=== PATIENT | male | born 2000 | race Caucasian/White ===

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

== ENCOUNTER 2019-11-26 17:08 | Emergency (ER) | payer MEDICAID ==
--- NOTE | 2019-11-26 18:08 | EDM.PDOC ---
ED HPI GENERAL MEDICAL PROBLEM - General Chief Complaint: ENT Problem Stated Complaint: SWOLLEN TONSILS Time Seen by Provider: 11/26/19 17:45 Source of Information: Reports: Patient History Limitations: Reports: No Limitations - History of Present Illness INITIAL COMMENTS - FREE TEXT/NARRATIVE: 19-year-old male with a sore throat for the last 2 days, is getting difficult to swallow and he looked in his throat and thought it was swollen so wanted it checked. No other symptoms such as cough, runny nose or fever. Onset: Gradual Duration: Day(s): (2 days) Associated Symptoms: Reports: Malaise. Denies: Chest Pain, Cough, Diaphoresis, Fever/Chills, Shortness of Breath - Related Data Allergies Allergy/AdvReac Type Severity Reaction Status Date / Time No Known Allergies Allergy Verified 11/26/19 17:26 Home Meds: Home Meds NK [No Known Home Meds] 04/01/18 [History] Past Medical History - Past Health History Medical/Surgical History: Denies Medical/Surgical History Musculoskeletal History: Reports: None - Past Surgical History HEENT Surgical History: Reports: None Musculoskeletal Surgical History: Reports: Other (See Below) Other Musculoskeletal Surgeries/Procedures:: right hand surgery Social & Family History - Tobacco Use Smoking Status *Q: Current Every Day Smoker Years of Tobacco use: 3 Packs/Tins Daily: 0.5 Used Tobacco, but Quit: No Second Hand Smoke Exposure: No - Caffeine Use Caffeine Use: Reports: Soda - Recreational Drug Use Recreational Drug Use: Yes Drug Use in Last 12 Months: Yes Recreational Drug Type: Reports: Marijuana/Hashish Recreational Drug Use Frequency: Socially ED ROS ENT - Review of Systems Review Of Systems: See Below Constitutional: Denies: Fever, Chills HEENT: Reports: Throat Pain. Denies: Eye Pain Respiratory: Denies: Shortness of Breath, Cough Cardiovascular: Denies: Chest Pain ED EXAM, ENT - Physical Exam Exam: See Below Exam Limited By: No Limitations General Appearance: Alert, No Apparent Distress Ears: Normal TMs Mouth/Throat: Pharyngeal Erythema, Tonsillar Erythema, Tonsillar Swelling. No: Tonsillar Exudates Neck: Lymphadenopathy (R) (Mild cervical adenopathy, somewhat worse on the left) , Lymphadenopathy (L) Respiratory/Chest: No Respiratory Distress, Lungs Clear Course - Vital Signs Last Recorded V/S: Last Vital Signs Temp 99.2 F 11/26/19 17:27 Pulse 72 11/26/19 17:27 Resp 16 11/26/19 17:27 BP 139/85 11/26/19 17:27 Pulse Ox 98 11/26/19 17:27 - Re-Assessments/Exams Free Text/Narrative Re-Assessment/Exam: 11/26/19 18:18 Strep was obtained and is positive. Patient was placed on amoxicillin 500 3 times daily for at least 7 days. Ibuprofen will help and staying hydrated, recheck in 2 to 3 days if not improving despite treatment. Departure - Departure Time of Disposition: 18:30 Disposition: Home, Self-Care 01 Clinical Impression: Acute streptococcal pharyngitis - Discharge Information Instructions: Sore Throat, [id number] Referrals: PCP,None [Primary Care Provider] - Forms: ED Department Discharge Care Plan Goals: Take antibiotic 3 times a day for at least 7 days, consider rechecking in 2 to 3 days if not improving despite treatment. Rest, fluids, ibuprofen will be beneficial. Return sooner if worsening such as increased swelling, difficulty breathing or unable to take the medication. Sepsis Event Note - Evaluation Sepsis Screening Result: No Definite Risk - Focused Exam Vital Signs: Vital Signs Temp Pulse Resp BP Pulse Ox 11/26/19 17:27 99.2 F 72 16 139/85 98 Date Exam was Performed: 11/26/19 Time Exam was Performed: 18:49
== END 2019-11-26 18:30 | disposition home or self-care (01) ==
LOC: JP.ED 17:08
DX: J02.0 Streptococcal pharyngitis (principal); F17.210 Nicotine dependence, cigarettes, uncomplicated
CPT/HCPCS: 87880-QW; 99283

== ENCOUNTER 2021-04-22 20:05 | Emergency (ER) | payer MEDICAID ==
--- NOTE | 2021-04-22 21:11 | EDM.PDOC ---
ED HPI GENERAL MEDICAL PROBLEM - General Stated Complaint: PT STATES POSS. STREP Time Seen by Provider: 04/22/21 21:04 Source of Information: Reports: Patient, RN Notes Reviewed History Limitations: Reports: No Limitations - History of Present Illness INITIAL COMMENTS - FREE TEXT/NARRATIVE: 20-year-old gentleman presents emergency department day complaint of sore throat, he states his been ill for about 2 days no fever little bit of a cough he did have strep last year concerned he may have returned - Related Data Allergies Allergy/AdvReac Type Severity Reaction Status Date / Time No Known Allergies Allergy Verified 04/22/21 21:05 Home Meds: Home Meds NK [No Known Home Meds] 04/01/18 [History] Past Medical History - Past Surgical History Musculoskeletal Surgical History: Reports: Other (See Below) Other Musculoskeletal Surgeries/Procedures:: right hand surgery Social & Family History - Tobacco Use Tobacco Use Status *Q: Never Tobacco User - Caffeine Use Caffeine Use: Reports: Soda - Recreational Drug Use Recreational Drug Use: Yes Drug Use in Last 12 Months: Yes Recreational Drug Type: Reports: Marijuana/Hashish Recreational Drug Use Frequency: Daily ED ROS ENT - Review of Systems Review Of Systems: See Below Constitutional: Denies: Fever, Chills HEENT: Reports: Throat Pain, Throat Swelling Respiratory: Reports: No Symptoms Cardiovascular: Reports: No Symptoms ED EXAM, ENT - Physical Exam Exam: See Below Exam Limited By: No Limitations General Appearance: Alert, WD/WN, No Apparent Distress Mouth/Throat: Normal Inspection, Normal Gums, Normal Lips, Normal Teeth, Pharyngeal Erythema Respiratory/Chest: No Respiratory Distress Course - Vital Signs Last Recorded V/S: Last Vital Signs Temp 98.6 F 04/22/21 21:03 Pulse 80 04/22/21 21:03 Resp 16 04/22/21 21:03 BP 123/79 04/22/21 21:03 Pulse Ox 98 04/22/21 21:03 Departure - Departure Time of Disposition: 21:12 Disposition: Home, Self-Care 01 Condition: Fair Clinical Impression: Acute streptococcal pharyngitis - Discharge Information Instructions: Pharyngitis, [id number] Referrals: PCP,None [Primary Care Provider] - Additional Instructions: Take full course of antibiotics, please followup with your primary care provider in 7-10 days if not better, please call return to the emergency department with worsening of symptoms. Sepsis Event Note (ED) - Evaluation Sepsis Screening Result: No Definite Risk - Focused Exam Vital Signs: Vital Signs Temp Pulse Resp BP Pulse Ox 04/22/21 21:03 98.6 F 80 16 123/79 98 04/22/21 20:35 98.6 F 80 16 123/79 98 - Assessment/Plan Plan: Assessment Acuity = acute Site and laterality = streptococcal pharyngitis Etiology = group A streptococcus Manifestations = none Location of injury = Home Lab values = rapid strep is positive Plan We will treat empirically amoxicillin 500 mg p.o. 3 times daily x10 days follow- up primary care 7 to 10 days if not better This note was dictated using [employer] voice recognition software please call with any questions on syntax or grammar.
== END 2021-04-22 21:28 | disposition home or self-care (01) ==
LOC: JP.ED 20:05
DX: J02.0 Streptococcal pharyngitis (principal)
CPT/HCPCS: 87880-QW; 99283

== ENCOUNTER 2021-12-16 18:33 | Emergency (ER) | payer MEDICAID ==
[2021-12-16] MEDS ORDERED: cefTRIAXone 500 MG, Lidocaine 1% 1 ML IM ONE ×2 (19:58)
[2021-12-19 15:13] LABS: CHLAMYDIA TRACHOMATIS, NAA Negative (Negative); NEISSERIA GONORRHOEAE, NAA Negative (Negative)
== END 2021-12-16 20:32 | disposition home or self-care (01) ==
LOC: JP.ED 18:33
DX: N41.9 Inflammatory disease of prostate, unspecified (principal)
CPT/HCPCS: 51798; 81001; 87491; 87591; 96372; 99282; 99283; J0696